=== PATIENT | female | born 1950 | race Caucasian/White ===

== ENCOUNTER 2024-03-22 12:00 | Emergency (ER) | payer OTHER ==
[2024-03-22] MEDS ORDERED: PROMETHAZINE INJ 25 MG/ML AMP ONE (13:08)
[2024-03-22 13:57] LABS: Absolute Lymphocytes (CBC) 0.8 K/uL (0.7-4.9); Absolute Monocytes 1.2 K/uL (0.1-1.3); Absolute Neutrophil 24.9 K/uL (1.8-8.0); Basophils % 0.2 % (0-1.3); Hematocrit 55.2 % (36.0-45.0); Hemoglobin 18.5 g/dL (12.0-15.0); Lymphocytes % 2.9 % (15.3-44.8); MCH 30.3 pg (27.0-35.0); MCHC 33.5 g/dL (32.0-36.0); MCV 90.5 fL (80-100); MPV 9.2 fL (7.6-11.3); Monocytes % 4.6 % (3.3-12.3); Neutrophils % 92.3 % (41.7-73.7); Nucleated Red Blood Cells % 0.1 % (0-0); Platelets 229 thou/uL (152-406); Red Cell Distribution Width 14.8 % (12.1-15.2)
[2024-03-22] MEDS ORDERED: NA CHLORIDE 0.9% 1,000 ML ONE (14:33)
[2024-03-22 14:50] LABS: Band Neutrophils 8 % (0-1); Differential Total Cells Count 100; Lymphocytes 10 % (15-42); Monocytes 7 % (0-10); Segmented Neutrophils 75 % (40-80)
[2024-03-22 14:51] LABS: Blood Morphology Comment NOT SEEN (NOT SEEN); Platelet Estimate ADEQ
[2024-03-22] MEDS ORDERED: NA CHLORIDE 0.9% 100 ML ONE (15:40)
[2024-03-22] MEDS ORDERED: PIPERACIL/TAZO 3.375 GM VIAL IV ONE (15:40)
[2024-03-22 16:30] LABS: Bilirubin Total 1.7 mg/dL (0.2-1.0); Globulin 3.1 g/dL (2.3-3.5); Protein, Total 6.1 g/dL (6.4-8.2)
[2024-03-22 17:23] LABS: PT Prothrombin Time 11.5 SECONDS (9.4-12.5); Protime INR 1.03
[2024-03-22 17:24] LABS: PTT, Activated Partial Thromb 25.7 SECONDS (24.3-36.9)
--- NOTE | 2024-03-22 17:48 | RAD REPORT ---
EXAM DESCRIPTION: CTAbdomen Pelvis Wo Contrast - 03/22/2024 5:32 pm CLINICAL HISTORY: Abd pain;GI bleed COMPARISON: No comparisons TECHNIQUE: CT of the abdomen and pelvis was performed without contrast. All CT scans are performed using dose optimization technique as appropriate and may include automated exposure control or mA/KV adjustment according to patient size. FINDINGS: Lower chest: Multi-vessel coronary disease. Liver: No acute abnormality or suspicious lesions. Biliary: Cholelithiasis with noncalcified stones. No CT is acute cholecystitis. Prominent extrahepati c common bile duct. Stomach: No significant focal abnormality. Duodenum: No significant focal abnormality. Pancreas: Pancreatic atrophy. No pancreatic duct dilatation . Spleen: No significant abnormality. Adrenal: No suspicious lesions. Kidney/ureter: No hydronephrosis. No renal calculi. Retroperitoneum: No retroperitoneal adenopathy. Vascular: No aneurysm. Atherosclerosis . Bowel: Diffuse fluid filled colon with wall thickening and stranding. The distal small bowel is also thickened and as mesenteric edema.. Peritoneum: No ascites or free air. Bladder: Grossly unremarkable. Reproductive: No adnexal masses. Bones: No acute fracture. Severe disc height loss L5-S1. Other: n/a IMPRESSION: Enterocolitis with differential to include infectious, inflammatory, and ischemic etiolo gies.
--- NOTE | 2024-03-22 17:56 | ER ---
Nurse's Notes [facility] Name: Fawn Doll Age: 74 yrs Sex: Female : 1950 Arrival Date: 03/22/2024 Time: 12:00 Bed 3 Private MD: Diagnosis: Severe sepsis with septic shock;Infectious gastroenteritis and colitis, unspecified;GI Bleed/ Gastrointestinal hemorrhage, unspecified Presentation: 03/22 12:18 Chief complaint: EMS states: Pt from home, has not been feeling well for a few days, ph unable to have BM, took medications to help, this morning passed a large amount of bright red blood, then became weak and fell, no LOC, did hit her head, does not use blood thinners, also had 1 episode of vomiting last night that was clear liquid, BP low at 80s/60s, IV established, fluids and Zofran given. Coronavirus screen: Vaccine status: Patient reports receiving the 2nd dose of the covid vaccine. Ebola Screen: No symptoms or risks identified at this time. Initial Sepsis Screen: Does the patient meet any 2 criteria? No. Patient's initial sepsis screen is negative. Does the patient have a suspected source of infection? No. Patient's initial sepsis screen is negative. Risk Assessment: Do you want to hurt yourself or someone else? Patient reports no desire to harm self or others. Onset of symptoms was March 22, 2024. 12:18 Method Of Arrival: EMS: [facility] 12:18 Acuity: KATHRYN 2 ph Triage Assessment: 12:22 General: Appears in no apparent distress. uncomfortable, Behavior is calm, cooperative. ph Pain: Complains of pain in left lower quadrant and right lower quadrant. Neuro: Level of Consciousness is awake, alert, obeys commands, Oriented to person, place, time, situation. Cardiovascular: Capillary refill < 3 seconds in bilateral fingers. Respiratory: Airway is patent Respiratory effort is even, unlabored. GI: Abdomen is non-distended, Abdomen is tender to palpation in right lower quadrant and left lower quadrant Reports lower abdominal pain, rectal bleeding, nausea, vomiting. Derm: Skin is pale, Skin temperature is cool. Historical: - Allergies: 12:23 Tylenol; ph - Home Meds: 17:54 losartan-hydrochlorothiazide 50-12.5 mg oral tablet [Active]; levothyroxine 75 mcg ph capsule daily [Active]; amlodipine 5 mg tablet [Active]; Nexium Oral [Active]; Xyzal oral [Active]; Wixela Inhub 250-50 mcg/dose inhalation Blister, With Inhalation Device [Active]; naproxen 500 mg Oral tablet [Active]; hydroxychloroquine 200 mg oral tablet 1.5 tabs [Active]; liothyronine 5 mcg oral tablet [Active]; - PMHx: 17:54 Rheumatoid arthritis; COPD; Thoracic aortic aneurysm; ph - Immunization history:: Adult Immunizations unknown. - Infectious Disease History:: Denies. - Social history:: Smoking status: Patient/guardian denies using tobacco, but has a distant history of tobacco abuse. Screenin:24 [facility] ED Fall Risk Assessment (Adult) History of falling in the last 3 months, ph including since admission Yes- physiologic fall (2 pts) Confusion or Disorientation No (0 pts) Intoxicated or Sedated No (0 pts) Impaired Gait No (0 pts) Mobility Assist Device Used No (0 pt) Altered Elimination Yes (1 pt) Score/Fall Risk Level 3 or more points = High Risk Oriented to surroundings, Maintained a safe environment, Hourly rounding (assess needs \T\ fall precautionary measures) done, Used ambulatory aids as needed (educated on \T\ assisted with). Abuse screen: Denies threats or abuse. Denies injuries from another. Nutritional screening: No deficits noted. Tuberculosis screening: No symptoms or risk factors identified. Assessment: 12:30 General: SEE TRIAGE ASSESSMENT. ph 13:30 Reassessment: Patient appears in no apparent distress at this time. Patient and/or ph family updated on plan of care and expected duration. Pain level reassessed. 14:41 Reassessment: Patient appears in no apparent distress at this time. Patient and/or ph family updated on plan of care and expected duration. Pain level reassessed. 16:40 Reassessment: Phlebotomy at bedside for blood draw. ph 17:53 Reassessment: Patient appears in no apparent distress at this time. Patient and/or ph family updated on plan of care and expected duration. Pain level reassessed. Vital Signs: 12:18 BP 105 / 73; Pulse 79; Resp 18; Temp 96.8; Pulse Ox 97% on R/A; Weight 68.95 kg; Height ph 5 ft. 1 in. ; 12:25 BP 90 / 66; Pulse 80; Resp 18; Pulse Ox 95% on R/A; ph 13:00 BP 119 / 84; Pulse 87; Resp 18; Pulse Ox 94% on R/A; ph 13:30 BP 103 / 62; Pulse 85; Resp 16; Pulse Ox 94% on R/A; ph 14:02 BP 96 / 57 LA Supine; Pulse 84; Resp 18; Pulse Ox 95% on R/A; ph 14:11 BP 106 / 73; Pulse 82; Resp 18; Pulse Ox 96% on R/A; ph 14:45 BP 121 / 82; Pulse 85; Resp 16; Pulse Ox 95% on R/A; ph 15:30 BP 134 / 80; Pulse 82; Resp 16; Pulse Ox 96% on R/A; ph 16:17 BP 134 / 92; Pulse 90; Resp 18; Pulse Ox 96% on R/A; ph 17:30 BP 101 / 69; Pulse 88; Resp 18; Pulse Ox 94% on R/A; ph 18:00 BP 133 / 86; Pulse 89; Resp 16; Pulse Ox 96% on R/A; ph 18:30 BP 104 / 66; Pulse 87; Resp 16; Temp 97.4; Pulse Ox 94% on R/A; ph 18:59 BP 103 / 75; Pulse 89; Resp 18; Pulse Ox 96% on R/A; ph 19:30 BP 101 / 74; Pulse 87; Resp 16; Pulse Ox 96% ; cp4 20:00 BP 105 / 73; Pulse 80; Resp 16; Pulse Ox 96% ; cp4 20:25 BP 122 / 65; Pulse 84; Resp 16; Temp 97.4; Pulse Ox 98% ; cp4 12:18 Body Mass Index 28.72 (68.95 kg, 154.94 cm) ph 14:02 Pt lying on R side, cuff on wrist ph ED Course: 12:07 Patient arrived in ED. ko1 12:08 Krista Zazueta PA-C is PHCP. sb4 12:08 Osvaldo Lopez MD is Attending Physician. sb4 12:18 Danette Berry RN is Primary Nurse. ph 12:22 Triage completed. ph 12:23 Arm band placed on Patient placed in an exam room, on a stretcher, on security monitor, ph on pulse oximetry. 12:23 Cleaned of incontinence. bright red blood noted in brief. ph 12:24 Patient has correct armband on for positive identification. Placed in gown. Bed in low ph position. Call light in reach. Side rails up X2. Client placed on continuous cardiac and pulse oximetry monitoring. NIBP monitoring applied. night monitor on. Door closed. Noise minimized. Warm blanket given. Pillow given. 13:25 Maintain EMS IV. Dressing intact. Site clean \T\ dry. Gauge \T\ site: 22 RAC. Flushed with ph 10 mL NS IV with fluids infusing freely, without good blood return. 13:30 Cleaned of incontinence. ph 13:35 Initial lab(s) drawn, by me, sent to lab. First set of blood cultures drawn by me, T\T\S ph collected, blood band applied to patient. 13:45 Missed attempt(s): 24 gauge in left wrist. Bleeding controlled, band aid applied, ph catheter tip intact. Inserted saline lock: 24 gauge in left upper arm, using aseptic technique. Blood collected. Flushed with 10 mL NS. 13:47 Blood Culture Adult (2) Sent. ph 13:47 CBC with Diff Sent. ph 13:47 Type And Screen Sent. ph 13:47 CMP Sent. ph 13:47 Lactate w/ 2H reflex if indic. Sent. ph 13:47 Protime (+inr) Sent. ph 13:47 Ptt, Activated Sent. ph 15:40 Cleaned of incontinence. ph 17:11 Cleaned of incontinence. ph 17:34 Abdomen In Process Unspecified. EDMS 17:53 initiated a transfer with Shannon Rene Raul from the [facility] [place]. eb 18:00 No provider procedures requiring assistance completed. Patient transferred, IV remains ph in place. 18:25 Diaz cath inserted, using sterile technique, 16 Fr., by me, balloon inflated, to ph gravity drainage, urine specimen collected. returned tea colored urine. Patient tolerated well. 18:37 Shane Hemphill MD is Hospitalizing Provider. sb4 19:36 Creatine Phosphokinase Sent. rv1 19:36 CBC w/o diff Sent. rv1 19:36 Lactate w/ 2H reflex if indic. Sent. rv1 19:37 Add On-Lab Sent. rv1 20:00 Repositioned patient. Cleaned of incontinence. rv1 20:[address] Dieter Cruz accepted pt to [facility] [address] Shannon Contreras RN sp admin approval. faxed facesheet report number [phone] ICU #[id number] called [facility] talked to Stefania. 20:24 Provided Education on: transfer. cp4 Administered Medications: 13:20 Drug: Promethazine IVP 6.25 mg IVP once Route: IVP; Site: right antecubital; ph 16:17 Follow up: Response: No adverse reaction ph 13:47 Drug: NS 0.9% IV 1000 ml IV at 1 bolus Per protocol; 1000 mL bolus Route: IV; Rate: 1 ph bolus; Site: right antecubital; 15:15 Follow up: Response: No adverse reaction; IV Status: Completed infusion; IV Intake: ph 1000ml 14:40 Drug: NS 0.9% IV (30 ml/kg) 30 ml/kg IV at bolus once; subtract initial 1000 mL given, ph administer as compete bolus Route: IV; Rate: bolus; Site: left upper arm; 17:30 Follow up: Response: No adverse reaction; IV Status: Completed infusion; IV Intake: ph 1000ml 15:02 CANCELLED (Physician Discretion): piperacillin-tazobactam3.375 grams IVPB once over 60 sb4 mins; (mix in NS 100 mL) 15:35 Drug: Piperacillin-Tazobactam IVPB 3.375 grams IVPB once over 60 mins; (mix in NS 100 ph mL) Route: IVPB; Infused Over: 60 mins; Site: left upper arm; 16:05 Follow up: Response: No adverse reaction; IV Status: Completed infusion; IV Intake: ph 100ml 20:06 Drug: Ondansetron IVP 4 mg IVP once; over 2 minutes Route: IVP; Site: left upper arm; bm8 20:23 Follow up: Response: No adverse reaction cp4 Medication: 12:24 VIS not applicable for this client. ph Intake: 15:15 IV: 1000ml; Total: 1000ml. ph 16:05 IV: 100ml; Total: 1100ml. ph 17:30 IV: 1000ml; Total: 2100ml. ph Outcome: 17:55 ER care complete, transfer ordered by MD. sb4 18:38 Decision to Hospitalize by Provider. sb4 18:53 ER care complete, transfer ordered by MD. sb4 20:24 Transferred by ground EMS [place] [facility] [facility]. cp4 X-rays sent w/ patient. 20:24 Condition: stable 20:24 Instructed on the need for transfer, 20:31 Patient left the ED. cp4 Signatures: Dispatcher [employer] EDMS Sugar Mcclellan Patricia RN RN Vale Swartz Kathy, RN RN Krista Thomas, PA-C PA-C sb4 Karen Harding Christina cp4 Marquis Chaudhari, RN RN bm8 Corrections: (The following items were deleted from the chart) 12:23 12:22 Derm: Skin is ph ph
--- NOTE | 2024-03-22 17:56 | EDPHYS ---
Physician Documentation [facility] Name: Fawn Doll Age: 74 yrs Sex: Female : 1950 Arrival Date: 03/22/2024 Time: 12:00 Bed 3 Private MD: ED Physician Osvaldo Lopez HPI: 03/22 12:09 This 74 yrs old Female presents to ER via Unassigned with complaints of Bloody Stools. sb4 12:10 constipation and weakness x 4 days, took a laxative yesterday, had a large BM this sb4 morning and saw bright red blood afterwards. also states she has been vomiting throughout the night, denies hematemesis. denies any blood thinner use. denies any prior abdominal infections. EMS reports BP in the 80s-90s systolic. Historical: - Allergies: 12:23 Tylenol; ph - Home Meds: 17:54 losartan-hydrochlorothiazide 50-12.5 mg oral tablet [Active]; levothyroxine 75 mcg ph capsule daily [Active]; amlodipine 5 mg tablet [Active]; Nexium Oral [Active]; Xyzal oral [Active]; Wixela Inhub 250-50 mcg/dose inhalation Blister, With Inhalation Device [Active]; naproxen 500 mg Oral tablet [Active]; hydroxychloroquine 200 mg oral tablet 1.5 tabs [Active]; liothyronine 5 mcg oral tablet [Active]; - PMHx: 17:54 Rheumatoid arthritis; COPD; Thoracic aortic aneurysm; ph - Immunization history:: Adult Immunizations unknown. - Infectious Disease History:: Denies. - Social history:: Smoking status: Patient/guardian denies using tobacco, but has a distant history of tobacco abuse. ROS: 12:10 Constitutional: Positive for fatigue, sb4 12:10 Abdomen/GI: Positive for nausea and vomiting, constipation, abdominal cramps, rectal bleeding, 12:10 Neuro: Positive for weakness, 12:10 All other systems are negative, Exam: 12:10 Head/Face: Normocephalic, atraumatic. Eyes: Extra-ocular motions intact. Periorbital sb4 areas with no swelling, redness, or edema. Cardiovascular: Regular rate and rhythm with a normal S1 and S2. Respiratory: Lungs have equal breath sounds bilaterally, clear to auscultation and percussion. No rales, rhonchi or wheezes noted. No increased work of breathing, no retractions or nasal flaring. 12:10 Constitutional: The patient appears awake, lethargic, pale, 12:10 ENT: Mouth: Oral mucosa: dry, 12:10 Abdomen/GI: Inspection: abdomen appears normal, Bowel sounds: normal, Palpation: soft, moderate abdominal tenderness, in the right lower quadrant and left lower quadrant, Rectal exam: rectal tone normal, Stool: maroon, 12:10 Skin: Appearance: Color: pale, Vital Signs: 12:18 BP 105 / 73; Pulse 79; Resp 18; Temp 96.8; Pulse Ox 97% on R/A; Weight 68.95 kg; Height ph 5 ft. 1 in. ; 12:25 BP 90 / 66; Pulse 80; Resp 18; Pulse Ox 95% on R/A; ph 13:00 BP 119 / 84; Pulse 87; Resp 18; Pulse Ox 94% on R/A; ph 13:30 BP 103 / 62; Pulse 85; Resp 16; Pulse Ox 94% on R/A; ph 14:02 BP 96 / 57 LA Supine; Pulse 84; Resp 18; Pulse Ox 95% on R/A; ph 14:11 BP 106 / 73; Pulse 82; Resp 18; Pulse Ox 96% on R/A; ph 14:45 BP 121 / 82; Pulse 85; Resp 16; Pulse Ox 95% on R/A; ph 15:30 BP 134 / 80; Pulse 82; Resp 16; Pulse Ox 96% on R/A; ph 16:17 BP 134 / 92; Pulse 90; Resp 18; Pulse Ox 96% on R/A; ph 17:30 BP 101 / 69; Pulse 88; Resp 18; Pulse Ox 94% on R/A; ph 18:00 BP 133 / 86; Pulse 89; Resp 16; Pulse Ox 96% on R/A; ph 18:30 BP 104 / 66; Pulse 87; Resp 16; Temp 97.4; Pulse Ox 94% on R/A; ph 18:59 BP 103 / 75; Pulse 89; Resp 18; Pulse Ox 96% on R/A; ph 19:30 BP 101 / 74; Pulse 87; Resp 16; Pulse Ox 96% ; cp4 20:00 BP 105 / 73; Pulse 80; Resp 16; Pulse Ox 96% ; cp4 20:25 BP 122 / 65; Pulse 84; Resp 16; Temp 97.4; Pulse Ox 98% ; cp4 12:18 Body Mass Index 28.72 (68.95 kg, 154.94 cm) ph 14:02 Pt lying on R side, cuff on wrist ph MDM: 12:08 Patient medically screened. sb4 15:02 Post IV fluid administration reassessment for Sepsis: Client prescribed 30 mL/kg IVF. sb4 17:00 Post IV fluid administration reassessment for Sepsis: Sepsis focused reassessment sb4 complete. Current vital signs reviewed: Yes. 18:01 Data reviewed: vital signs, nurses notes, EMS record, lab test result(s), EKG, sb4 radiologic studies, I have discussed the patient's presentation/case with the attending Emergency Department Physician;. Consideration of Admission/Observation Patient was admitted/placed on observation. Care significantly affected by the following chronic conditions: Chronic Obstructive Pulmonary Disease. Counseling: I had a detailed discussion with the patient and/or guardian regarding the historical points, exam findings, and any diagnostic results supporting the discharge/admit diagnosis, lab results, radiology results, the need to transfer to another facility, for higher level of care, [facility] does not immediately have the required specialist. 03/22 12:08 Order name: Blood Culture Adult (2); Complete Time: 17:07 sb4 03/22 12:08 Order name: CBC with Diff; Complete Time: 14:51 sb4 03/22 12:08 Order name: CMP; Complete Time: 17:07 sb4 03/22 12:08 Order name: Lactate w/ 2H reflex if indic.; Complete Time: 14:19 sb4 03/22 12:08 Order name: Protime (+inr); Complete Time: 17:25 sb4 03/22 12:08 Order name: Ptt, Activated; Complete Time: 17:25 sb4 03/22 12:08 Order name: Urinalysis w/ reflexes; Complete Time: 17:07 sb4 03/22 12:08 Order name: Type And Screen; Complete Time: 17:51 sb4 03/22 12:35 Order name: Glucose, Ancillary Testing; Complete Time: 12:45 EDMS 03/22 14:48 Order name: Manual Differential; Complete Time: 14:51 EDMS 03/22 16:18 Order name: Ghost Lactate-NO COLLECT Timer; Complete Time: 16:20 EDMS 03/22 17:38 Order name: ABO/RH no charge; Complete Time: 17:40 EDMS 03/22 17:44 Order name: Lactate Sepsis 2 HR Follow-up; Complete Time: 17:46 EDMS 03/22 18:26 Order name: Add On-Lab sb4 03/22 18:42 Order name: Lactate w/ 2H reflex if indic.; Complete Time: 17:07 sb4 03/22 18:44 Order name: CBC w/o diff; Complete Time: 17:07 hb 03/22 18:45 Order name: Creatine Phosphokinase; Complete Time: 17:07 EDMS 03/22 19:29 Order name: Urine Culture EDMS 03/22 16:56 Order name: Abdomen ; Complete Time: 17:51 EDMS 03/22 12:08 Order name: EKG; Complete Time: 12:09 sb4 03/22 12:08 Order name: Accucheck; Complete Time: 12:23 sb4 03/22 12:08 Order name: Cardiac monitoring; Complete Time: 12:23 sb4 03/22 12:08 Order name: EKG - Nurse/Tech; Complete Time: 12:23 sb4 03/22 12:08 Order name: IV Saline Lock - Large Bore; Complete Time: 12:23 sb4 03/22 12:08 Order name: Labs collected and sent; Complete Time: 13:47 sb4 03/22 12:08 Order name: O2 Per Protocol; Complete Time: 12:23 sb4 03/22 12:08 Order name: O2 Sat Monitoring; Complete Time: 12:23 sb4 03/22 12:08 Order name: Vital Signs; Complete Time: 12:23 sb4 03/22 18:01 Order name: Diaz; Complete Time: 18:58 sb4 EC:06 Rate is 82 beats/min. Rhythm is regular, Sinus Rhythm with PACs. NH interval is normal sb4 at 154 msec. QRS interval is normal at 88 msec. QT interval is prolonged at 460 msec. No Q waves. T waves are Normal. No ST changes noted. Clinical impression: No evidence of ischemia. Interpreted by me. Reviewed by me. Administered Medications: 13:20 Drug: Promethazine IVP 6.25 mg IVP once Route: IVP; Site: right antecubital; ph 16:17 Follow up: Response: No adverse reaction ph 13:47 Drug: NS 0.9% IV 1000 ml IV at 1 bolus Per protocol; 1000 mL bolus Route: IV; Rate: 1 ph bolus; Site: right antecubital; 15:15 Follow up: Response: No adverse reaction; IV Status: Completed infusion; IV Intake: ph 1000ml 14:40 Drug: NS 0.9% IV (30 ml/kg) 30 ml/kg IV at bolus once; subtract initial 1000 mL given, ph administer as compete bolus Route: IV; Rate: bolus; Site: left upper arm; 17:30 Follow up: Response: No adverse reaction; IV Status: Completed infusion; IV Intake: ph 1000ml 15:02 CANCELLED (Physician Discretion): piperacillin-tazobactam3.375 grams IVPB once over 60 sb4 mins; (mix in NS 100 mL) 15:35 Drug: Piperacillin-Tazobactam IVPB 3.375 grams IVPB once over 60 mins; (mix in NS 100 ph mL) Route: IVPB; Infused Over: 60 mins; Site: left upper arm; 16:05 Follow up: Response: No adverse reaction; IV Status: Completed infusion; IV Intake: ph 100ml 20:06 Drug: Ondansetron IVP 4 mg IVP once; over 2 minutes Route: IVP; Site: left upper arm; bm8 20:23 Follow up: Response: No adverse reaction cp4 Disposition: 18:01 Chart complete. sb4 03/23 08:42 Co-signature as Attending Physician, Osvaldo Lopez MD I reviewed the patient's care rn provided by the Advanced Practice Provider and agree with the diagnosis and treatment plan. Disposition Summary: 03/22/24 18:53 Transfer Ordered Notes: Transfer Location: [facility](03/22/24 18:53) sb4 Reason: Higher level of care(03/22/24 18:53) sb4 Condition: Fair(03/22/24 18:53) sb4 Problem: new(03/22/24 18:53) sb4 Symptoms: are unchanged(03/22/24 18:53) sb4 Accepting Physician: strategy associate(03/22/24 20:31) cp4 Diagnosis - Severe sepsis with septic shock(03/22/24 18:53) sb4 - Infectious gastroenteritis and colitis, unspecified(03/22/24 18:53) sb4 - GI Bleed/ Gastrointestinal hemorrhage, unspecified(03/22/24 18:53) sb4 Forms: - Medication Reconciliation Form sb4 - SBAR form sb4 Critical care time excluding procedures: 03/22 18:01 Critical care time: Bedside Care: 15 minutes, Consultation: 15 minutes, Family sb4 Intervention: 5 minutes. Total time: 35 minutes Signatures: Dispatcher [employer] EDMS Osvaldo Lopez MD MD rn Hall, Patricia RN RN ph Vale London Sophia, PA-C PA-C sb4 Jasmin Clay cp4 Marquis Chaudhari RN RN bm8 Corrections: (The following items were deleted from the chart) 12:23 12:23 Abdomen Pelvis W Con+CT.RAD.BRZ ordered. EDIL EDMS 13:44 12:10 constipation and weakness x 4 days, finally had a BM this morning and saw bright sb4 red blood. also states she has been vomiting throughout the night, denies hematemesis. denies any blood thinner use. denies any prior abdominal infections. EMS reports BP in the 80s-90s systolic. sb4 14:48 14:03 CBC Smear Scan ordered. EDIL EDMS 15:02 15:02 Piperacillin-Tazobactam IVPB 3.375 grams IVPB once over 60 mins; (mix in NS 100 sb4 mL) ordered. sb4 18:37 17:55 intensitivist sb4 sb4 18:37 17:55 [facility] sb4 sb4 18:37 17:55 Higher level of care sb4 sb4 18:37 17:55 Serious sb4 sb4 18:37 17:55 new sb4 sb4 18:37 17:55 are unchanged sb4 sb4 18:37 17:55 Severe sepsis with septic shock sb4 sb4 18:37 17:55 Infectious gastroenteritis and colitis, unspecified sb4 sb4 18:37 17:55 GI Bleed/ Gastrointestinal hemorrhage, unspecified sb4 sb4 18:40 16:21 LACTATE+C.LAB.BRZ ordered. [facility] EDMS 18:52 18:38 Inpatient Admission sb4 sb4 18:52 18:38 Shane Hemphill sb4 sb4 18:52 18:38 Telemetry/MedSurg (Inpatient) sb4 sb4 18:52 18:38 Fair sb4 sb4 18:52 18:38 new sb4 sb4 18: 18:38 are unchanged sb4 sb4 18:52 18:38 Standard sb4 sb4 18:52 18:38 sb4 sb4 18:52 18:38 Infectious gastroenteritis and colitis, unspecified sb4 sb4 18:52 18:38 Severe sepsis with septic shock sb4 sb4 20:31 18:53 strategy associate sb4 cp4
[2024-03-22 19:10] LABS: Specific Gravity > 1.030 (1.005-1.030); Urine Bacteria <20 /HPF (<20); Urine Bilirubin 1+ (Negative); Urine Blood Trace (Negative); Urine Clarity Extremely Turbid (Clear); Urine Color Dark-Orange (Yellow); Urine Culture Reflex Order REFLEXED; Urine Glucose NEGATIVE (Negative); Urine Ketones TRACE (Negative); Urine Microscopic Reflex YN ORDER UMIC; Urine Mucus Slight /HPF (None Seen); Urine Nitrite NEGATIVE (Negative); Urine Protein 1+ (Negative); Urine Urobilinogen 2+ (Normal); Urine pH 5.5 (5.0-7.0)
[2024-03-22 19:41] LABS: Hematocrit 48.5 % (36.0-45.0); Hemoglobin 16.1 g/dL (12.0-15.0); MCHC 33.2 g/dL (32.0-36.0); MCV 90.5 fL (80-100); MPV 8.8 fL (7.6-11.3); Platelets 202 thou/uL (152-406); RBC Red Blood Cell Count 5.36 M/uL (3.86-4.86); Red Cell Distribution Width 14.3 % (12.1-15.2)
[2024-03-22] MEDS ORDERED: ONDANSETRON 4 MG/2 ML VIAL ONE (20:02)
[2024-03-22 20:53] VITALS: TEMP 97.4
[2024-03-22 21:00] VITALS: BP 122/65; O2SAT 98
--- NOTE | 2024-03-23 13:46 | EKG ---
Test Date: 2024-03-22 Test Time: 12:24:33 Technician Anatomic Pathology: YANDY MEASUREMENT RESULTS: Intervals: Rate: 82 DC: 154 QRSD: 88 QT: 460 QTc: 537 [place]: P: 60 DC: 154 QRS: 80 T: 76 INTERPRETIVE STATEMENTS: Sinus rhythm with premature atrial complexes Prolonged QT Abnormal ECG Compared to ECG 03/20/2005 15:12:00 Atrial premature complex(es) now present Prolonged QT interval now present Sinus bradycardia no longer present Electronically Signed On 03-23-24 13:44:31 CDT by Destin Benjamin
== END 2024-03-22 20:31 | disposition short-term general hospital (02) ==
LOC: ER 12:00
DX: A09 Infectious gastroenteritis and colitis, unspecified (principal); R65.21 Severe sepsis with septic shock; R11.2 Nausea with vomiting, unspecified; J44.9 Chronic obstructive pulmonary disease, unspecified
CPT/HCPCS: 93005; 87040 ×2; 87088; 85025; 81001; 87086; 36415; 86900; 86850; 82550; 85610; 86901; 82947; 83605 ×3; 85730; 85027; 80053; 74176; 51702; 99285; J2550; J2543; J2405; J7030

== ENCOUNTER 2024-05-15 18:02 | Emergency (ER) | payer OTHER ==
[2024-05-15] MEDS ORDERED: NA CHLORIDE 0.9% 500 ML ONE (19:43)
[2024-05-15 20:34] LABS: Absolute Basophils 0.1 K/uL (0-0.5); Absolute Eosinophils 0.3 K/uL (0-0.5); Absolute Lymphocytes (CBC) 1.9 K/uL (0.7-4.9); Absolute Monocytes 0.6 K/uL (0.1-1.3); Absolute Neutrophil 5.3 K/uL (1.8-8.0); Basophils % 1.1 % (0-1.3); Eosinophils % 3.3 % (0-4.4); Hematocrit 30.7 % (36.0-45.0); Hemoglobin 10.6 g/dL (12.0-15.0); Lymphocytes % 23.7 % (15.3-44.8); MCH 30.1 pg (27.0-35.0); MCHC 34.6 g/dL (32.0-36.0); MCV 87.1 fL (80-100); MPV 7.6 fL (7.6-11.3); Monocytes % 7.2 % (3.3-12.3); Neutrophils % 64.7 % (41.7-73.7); Nucleated Red Blood Cells % 0.3 % (0-0); Platelets 201 thou/uL (152-406); RBC Red Blood Cell Count 3.52 M/uL (3.86-4.86); Red Cell Distribution Width 14.6 % (12.1-15.2)
[2024-05-15 20:41] LABS: Albumin 2.8 g/dL (3.4-5.0); Albumin/Globulin Ratio 0.6 (1.1-1.8); Anion Gap 9.1 mEq/L (5.0-15.0); Bilirubin Total 0.3 mg/dL (0.2-1.0); Globulin 4.6 g/dL (2.3-3.5); Potassium 4.1 mEq/L (3.5-5.1); Protein, Total 7.4 g/dL (6.4-8.2)
[2024-05-15 20:50] LABS: Blood Morphology Comment NOT SEEN (NOT SEEN); Platelet Estimate ADEQ; White Blood Cell Scan OK (OK)
--- NOTE | 2024-05-15 21:20 | RAD REPORT ---
EXAM: Right upper quadrant ultrasound. CLINICAL HISTORY: r/o cholecystitis COMPARISON: CT same day. FINDINGS: Gallbladder: Distended gallbladder noted with a stone in the fundal region. Gallbladder wall is not t hickened. No pericholecystic fluid. Bile ducts: No intrahepatic or extrahepatic biliary dilatation. Common bile duct measures 5 mm. Limited imaging of the liver shows no concerning finding. IMPRESSION: Distended gallbladder containing a gallstone noted. No wall thickening or pericholecystic fluid to i ndicate acute cholecystitis at this time. If symptoms persist, follow-up HIDA scan may be of value.
--- NOTE | 2024-05-15 21:46 | EDPHYS ---
Physician Documentation [facility] Name: Fawn Doll Age: 74 yrs Sex: Female : 1950 Arrival Date: 05/15/2024 Time: 18:02 Bed 13 Private MD: ED Physician Tony Morrow HPI: 05/15 19:33 This 74 yrs old Female presents to ER via Ambulatory with complaints of Abnormal Lab cp Results, ABNORMAL IMAGING RESULTS-DR LOVE. 19:33 Patient is a 74-year-old female who was referred to the emergency department for cp evaluation. Patient reports having a CT of the abdomen pelvis performed today at [facility] that was ordered by her primary care doctor. Patient reports her doctor received the results of the CAT scan and informed her to go to the emergency department for evaluation. Patient does complain of intermittent right upper abdominal pain with no complaints of pain at this time. Historical: - Allergies: 18:28 Tylenol; cm10 - PMHx: 18:28 COPD; Rheumatoid Arthritis; THORACIC AORTIC ANEURYSM; cm10 - Immunization history:: Adult Immunizations up to date. - Infectious Disease History:: Denies. - Social history:: Smoking status: Patient denies any tobacco usage or history of. ROS: 19:35 Abdomen/GI: Positive for abdominal pain, of the right upper quadrant, Negative for cp vomiting, diarrhea, constipation, 19:35 Eyes: Negative for injury, pain, redness, and discharge, cp 19:35 Constitutional: Negative for body aches, chills, fever, poor PO intake, 19:35 ENT: Negative for drainage from ear(s), ear pain, sore throat, difficulty swallowing, difficulty handling secretions, 19:35 Cardiovascular: Negative for chest pain, palpitations, 19:35 Respiratory: Negative for cough, shortness of breath, wheezing, 19:35 Neuro: Negative for altered mental status, dizziness, headache, weakness, 19:35 All other systems are negative, Exam: 19:40 Constitutional: The patient appears in no acute distress, alert, awake, cp non-diaphoretic, non-toxic, well developed, well nourished, 19:40 Head/Face: Normocephalic, atraumatic. cp 19:40 Eyes: Periorbital structures: appear normal, Conjunctiva: normal, no exudate, no injection, Sclera: no appreciated abnormality, Lids and lashes: appear normal, bilaterally, 19:40 ENT: External ear(s): are unremarkable, Nose: is normal, Mouth: Lips: moist, Oral mucosa: pink and intact, moist, Posterior pharynx: Airway: no evidence of obstruction, patent, 19:40 Chest/axilla: Inspection: normal, 19:40 Cardiovascular: Rate: normal, Rhythm: regular, 19:40 Respiratory: the patient does not display signs of respiratory distress, Respirations: normal, no use of accessory muscles, no retractions, labored breathing, is not present, Breath sounds: are clear throughout, no decreased breath sounds, no stridor, no wheezing, 19:40 Abdomen/GI: Inspection: abdomen appears normal, Bowel sounds: active, all quadrants, Palpation: soft, in all quadrants, mild abdominal tenderness, in the right upper quadrant, rebound tenderness, is not appreciated, involuntary guarding, is not appreciated, 19:40 Back: CVA tenderness, is absent, Vital Signs: 18:27 BP 161 / 82; Pulse 91; Resp 16; Temp 97.6; Pulse Ox 96% on R/A; Weight 64.41 kg; Height cm10 5 ft. 1 in. ; Pain 0/10; 20:31 BP 141 / 90; Pulse 117; Resp 20; Pulse Ox 100% ; kj2 21:44 BP 158 / 81; Pulse 80; Resp 18; Temp 98; Pulse Ox 100% ; kj2 18:27 Body Mass Index 26.83 (64.41 kg, 154.94 cm) cm10 18:27 Pain Scale: Adult cm10 MDM: 20:00 Differential diagnosis: cholelithiasis, choledocholithiasis, cholecystitis, cp pancreatitis. 21:45 Patient medically screened. 21:45 Data reviewed: vital signs, nurses notes, lab test result(s), radiologic studies, cp ultrasound, report of CT abdomen/pelvis. 21:45 Management of patient was discussed with the following: Dance Choreographer: DR Fagan who will cp see patient in office next week. Counseling: I had a detailed discussion with the patient and/or guardian regarding the historical points, exam findings, and any diagnostic results supporting the discharge/admit diagnosis, lab results, radiology results, the need for outpatient follow up, for definitive care, a general surgeon, to return to the emergency department if symptoms worsen or persist or if there are any questions or concerns that arise at home. 05/15 19:28 Order name: CBC with Diff; Complete Time: 21:05 cp 05/15 21:05 Interpretation: Normal except: RBC 3.52; HGB 10.6; HCT 30.7. cp 05/15 19:28 Order name: CMP; Complete Time: 21:05 cp 05/15 21:05 Interpretation: Normal except: NA 135; CL 109; GFR 80; ALB 2.8; GLOB 4.6; A/G 0.6. cp 05/15 19:28 Order name: Lipase; Complete Time: 21:05 cp 05/15 20:50 Order name: CBC Smear Scan; Complete Time: 21:05 EDMS 05/15 19:28 Order name: US Abdomen Limited; Complete Time: 21:34 cp 05/15 19:28 Order name: IV Saline Lock; Complete Time: 20:36 cp 05/15 19:28 Order name: Labs collected and sent; Complete Time: 20:37 cp 05/15 19:28 Order name: NPO; Complete Time: 20:31 cp Administered Medications: 20:39 Drug: NS 0.9% IV 500 ml IV at 500 ml/hr continuous Route: IV; Rate: 500 ml/hr; Site: [facility] [place] right forearm; 22:01 Follow up: IV Status: Infusion continued; IV Intake: 500ml kj2 Disposition Summary: 05/15/24 21:45 Discharge Ordered Notes: Location: Home cp Problem: new cp Symptoms: have improved cp Condition: Stable cp Diagnosis - Other cholelithiasis without obstruction cp Followup: cp - With: Naresh Fagan MD - When: 2 - 3 days - Reason: Recheck today's complaints Discharge Instructions: - Discharge Summary Sheet cp - Cholelithiasis cp Forms: - Medication Reconciliation Form cp - Antibiotic Education cp - Prescription Opioid Use cp - Patient Portal Instructions cp - Leadership Thank You Letter cp Prescriptions: - Zofran 4 mg Oral Tablet - take 1 tablet ORAL route every 12 hours As needed; 20 tablet; Refills: 0, cp Product Selection Permitted - dicyclomine 20 mg Oral tablet - take 1 tablet ORAL route 4 times per day; 30 tablet; Refills: 0, Product cp Selection Permitted Signatures: Dispatcher [employer] EDMS Tony Chase PA PA cp Yousuf, Blanche, RN RN cm10 Kenia Cook RN RN me1 Marisela Matthews RN kj2 Corrections: (The following items were deleted from the chart) 18:29 18:28 PMHx: Hypertensive disorder; cm10 cm10
--- NOTE | 2024-05-15 21:46 | ER ---
Nurse's Notes [facility] Name: Fawn Doll Age: 74 yrs Sex: Female : 1950 Arrival Date: 05/15/2024 Time: 18:02 Bed 13 Private MD: Diagnosis: Other cholelithiasis without obstruction Presentation: 05/15 18:27 Chief complaint: Patient states: Had CT scan done today outpatient due to have RUQ cm10 abdominal pain after eating. Got a call and was told to come to the ED to have an ultrasound of gallbladder to rule out cholecystitis. Coronavirus screen: Client denies travel out of the [place] in the last 14 days. Ebola Screen: Patient denies travel to an Ebola-affected area in the 21 days before illness onset. Initial Sepsis Screen: Does the patient meet any 2 criteria? HR > 90 bpm. Does the patient have a suspected source of infection? No. Patient's initial sepsis screen is negative. Risk Assessment: Do you want to hurt yourself or someone else? Patient reports no desire to harm self or others. Onset of symptoms was May 15, 2024. 18:27 Method Of Arrival: Ambulatory cm10 18:27 Acuity: KATHRYN 3 cm10 Triage Assessment: 18:30 General: Appears in no apparent distress. comfortable, Behavior is calm, cooperative. cm10 Neuro: No deficits noted. Level of Consciousness is awake, alert, obeys commands, Oriented to person, place, time, situation, Appropriate for age. Respiratory: No deficits noted. Airway is patent Respiratory effort is even, unlabored, Respiratory pattern is regular, symmetrical. Historical: - Allergies: 18:28 Tylenol; cm10 - PMHx: 18:28 COPD; Rheumatoid Arthritis; THORACIC AORTIC ANEURYSM; cm10 - Immunization history:: Adult Immunizations up to date. - Infectious Disease History:: Denies. - Social history:: Smoking status: Patient denies any tobacco usage or history of. Screenin:30 [facility] ED Fall Risk Assessment (Adult) History of falling in the last 3 months, kj2 including since admission No falls in past 3 months (0 pts) Confusion or Disorientation No (0 pts) Intoxicated or Sedated No (0 pts) Impaired Gait No (0 pts) Mobility Assist Device Used No (0 pt) Altered Elimination No (0 pt) Score/Fall Risk Level 0 - 2 = Low Risk Maintained a safe environment, Hourly rounding (assess needs \T\ fall precautionary measures) done. Abuse screen: Denies threats or abuse. Denies injuries from another. Nutritional screening: No deficits noted. Tuberculosis screening: No symptoms or risk factors identified. Assessment: 19:20 General: Appears in no apparent distress. Behavior is calm, cooperative. Pain: Denies kj2 pain. Neuro: Level of Consciousness is awake, alert, obeys commands, Oriented to person, place, time, situation. Cardiovascular: Patient's skin is warm and dry. Respiratory: Airway is patent Respiratory effort is even, unlabored. GI: No signs and/or symptoms were reported involving the gastrointestinal system. : No signs and/or symptoms were reported regarding the genitourinary system. 21:43 Reassessment: Patient appears in no apparent distress at this time. Patient and/or kj2 family updated on plan of care and expected duration. Pain level reassessed. Patient is alert, oriented x 3, equal unlabored respirations, skin warm/dry/pink. Vital Signs: 18:27 BP 161 / 82; Pulse 91; Resp 16; Temp 97.6; Pulse Ox 96% on R/A; Weight 64.41 kg; Height cm10 5 ft. 1 in. ; Pain 0/10; 20:31 BP 141 / 90; Pulse 117; Resp 20; Pulse Ox 100% ; kj2 21:44 BP 158 / 81; Pulse 80; Resp 18; Temp 98; Pulse Ox 100% ; kj2 18:27 Body Mass Index 26.83 (64.41 kg, 154.94 cm) cm10 18:27 Pain Scale: Adult cm10 ED Course: 18:05 Patient arrived in ED. jj6 18:28 Triage completed. cm10 18:30 Arm band placed on Patient placed in waiting room. cm10 18:53 Tony Chase PA is PHCP. cp 18:53 Tony Morrow MD is Attending Physician. cp 19:30 Patient has correct armband on for positive identification. Bed in low position. Call kj2 light in reach. Side rails up X 1. Adult w/ patient. Provided Education on: call light. 19:33 Marisela Matthews, RN is Primary Nurse. kj2 19:40 Missed attempt(s): 20 gauge in left antecubital area. kj2 20:36 No provider procedures requiring assistance completed. kj2 20:38 Inserted saline lock: 22 gauge in right forearm, using aseptic technique. me1 21:16 US Abdomen Limited In Process Unspecified. EDMS 21:45 Naresh Fagan MD is Referral Physician. cp 22:03 IV discontinued, intact, bleeding controlled, No redness/swelling at site. Pressure kj2 dressing applied. Administered Medications: 20:39 Drug: NS 0.9% IV 500 ml IV at 500 ml/hr continuous Route: IV; Rate: 500 ml/hr; Site: me1 right forearm; 22:01 Follow up: IV Status: Infusion continued; IV Intake: 500ml kj2 Medication: 20:35 VIS not applicable for this client. kj2 Intake: 22:01 IV: 500ml; Total: 500ml. kj2 Outcome: 21:45 Discharge ordered by . cp 22:01 Condition: stable kj2 22:02 Discharge instructions given to patient, Instructed on discharge instructions, follow kj2 up and referral plans. medication usage, Demonstrated understanding of instructions, follow-up care, medications, Prescriptions given X 2, 22:04 Discharged to home ambulatory, with family, kj2 22:11 Patient left the ED. kj2 Signatures: Dispatcher [employer] EDOK Tony Chase PA PA cp Elizabeth Haddadj6 Blanche To, RN RN cm10 Kenia Cook RN RN me1 Marisela Matthews RN RN kj2 Corrections: (The following items were deleted from the chart) 18:29 18:28 PMHx: Hypertensive disorder; cm10 cm10 22:05 22:02 Discharge instructions given to patient, Instructed on discharge instructions, kj2 follow up and referral plans. medication usage, Demonstrated understanding of instructions, follow-up care, medications, Prescriptions given X 2, kj2 22:05 22:02 Transferred by ground EMS to [facility], [facility] [place], kj2 kj2
[2024-05-15 22:38] VITALS: O2SAT 100
[2024-05-15 22:39] VITALS: BP 158/81; TEMP 98
== END 2024-05-15 22:11 | disposition home or self-care (01) ==
LOC: ER 18:02
DX: K80.80 Other cholelithiasis without obstruction (principal)
CPT/HCPCS: 85025; 36415; 83690; 80053; 76705; 96360; 99284; J7040

== ENCOUNTER 2024-08-10 08:24 | Day surgery (SDC) | payer OTHER ==
[2024-08-06 16:14] LABS: ALT/SGPT 16 U/L (13-56); AST/SGOT 18 U/L (15-37); Albumin/Globulin Ratio 0.7 (1.1-1.8); Alkaline Phosphatase 85 U/L (45-117); Bilirubin Total 0.3 mg/dL (0.2-1.0); Globulin 4.6 g/dL (2.3-3.5); Lipase 41 U/L (13-75); Protein, Total 7.6 g/dL (6.4-8.2)
--- NOTE | 2024-08-06 16:20 | RAD REPORT ---
EXAMINATION: TWO VIEW CHEST XR CLINICAL INDICATION: Pre-op pending cholecystectomy TECHNIQUE: 2 views of the chest was performed. COMPARISON: 09/30/2017 FINDINGS: The lungs are well inflated and clear. The heart is upper limit of normal in size. No displaced fract ures evident. Aortic atherosclerosis. IMPRESSION: No acute or significant abnormalities.
[2024-08-06 16:38] LABS: Bilirubin Direct < 0.2 mg/dL (0-0.2); Bilirubin Indirect, Calculated 0.1 mg/dL (0.2-0.8)
[2024-08-10] MEDS ORDERED: ROCURONIUM 50 MG/5 ML VIAL IV ONE (08:28)
[2024-08-10] MEDS ORDERED: LIDOCAINE 2% MPF 5 ML VIAL ONE (08:28)
[2024-08-10] MEDS ORDERED: propofoL 200 MG/20 ML VIAL IV ONE (08:28)
[2024-08-10] MEDS ORDERED: ONDANSETRON 4 MG/2 ML VIAL ONE (08:28)
[2024-08-10] MEDS ORDERED: FENTANYL CITR 100 MCG/2 ML ONE (08:28)
[2024-08-10] MEDS: CEFOXITIN SODIUM 1 GM/VIAL ONE (09:10)
[2024-08-10] MEDS: Ringers Lactate 1,000 ML IV ONE (09:10)
[2024-08-10] MEDS ORDERED: dexAMETHasone 10 MG/ML VIAL ONE (09:38)
[2024-08-10] MEDS ORDERED: EPHEDRINE SULF 50 MG/ML VIAL ONE (09:38)
[2024-08-10] MEDS ORDERED: NEOSTIGMINE 1 MG/ML -10 ML VIAL ONE (10:04)
[2024-08-10] MEDS ORDERED: Mastisol Adhesive Liq ONE (10:05)
[2024-08-10] MEDS ORDERED: GLYCOPYRROLATE 0.2 MG/ML SYR ONE (10:05)
--- NOTE | 2024-08-10 10:10 | P.BOP ---
Preoperative diagnosis: acute cholecystitis, symptomatic cholelithiasis Postoperative diagnosis: same Primary procedure: Laparoscopic cholecystectomy Estimated blood loss: <10cc Specimen: gb Findings: as above Anesthesia: General Complications: None Transferred to: Recovery Room Condition: Good
[2024-08-10] MEDS: HYDROMORPHONE HCL 1 MG/ML INJ ONE (10:48)
[2024-08-10] MEDS: ONDANSETRON 4 MG/2 ML VIAL ONE (10:57)
[2024-08-10] MEDS: METOCLOPRAMIDE 10 MG/2mL INJ ONE (11:25)
[2024-08-10 11:39] VITALS: BP 137/58; TEMP 98.1; O2SAT 98
== END 2024-08-10 13:42 | disposition home or self-care (01) ==
LOC: OR 08:24
PROVIDERS: ATTEND Surgery
PROC: 0FT44ZZ Resection of Gallbladder, Percutaneous Endoscopic Approach (ICD-10-PCS; principal; 2024-08-10 10:00)
DX: K80.10 Calculus of gallbladder with chronic cholecystitis without obstruction (principal)
CPT/HCPCS: 47562; 36415; 80076; 88304; 83690; 71046; J2704; J2710; J2765; J2003; J3010; J1100; J1171; J0694; J2405 ×2; J7120